=== PATIENT | female | born 1985 | race Caucasian/White ===

== ENCOUNTER 2016-09-26 03:56 | Outpatient (CLI) | payer MEDICAID ==
[~2016-09-26] VITALS: Ht 160 cm; Wt 86.0 kg
[~2016-09-26 03:56] MED LIST: PREN-39 PO
[2016-09-26] MEDS ORDERED: CITRACAL PO (04:12)
[2016-09-26 04:13] VITALS: BP 127/84; PULSE 69; RESP 18; Ht 160 cm; Wt 86.0 kg
--- NOTE | 2016-09-26 06:53 | PN ---
Date/Time of Note Date/Time of Note DATE: 09/26/16 TIME: 06:50 OB Subjective Subjective Subjective patient came w/ c/o ctx, r/o labor good FM, no VB, no LOF OB Objective Objective Objective 127/84, 69, 18, 98.5 Abdd- gravid, n/t SVE- 1-2/80/-3 FHT- 130; Cat I [place]- irreg ctx Abdomen: WNL Heart Rate: 130's Accelerations: Accelerations Present Decelerations: No Decelerations Varibility: Moderate Intensity: Mild OB Assessment/Plan Other Assessment: 31 yo P 1 @ 39 wks, 6 days, r/o labor - not in labor - reassuring status Other plan: d/c home w labor precautions f/u prn RHYS WESTON MD Sep 26, 2016 06:53
--- NOTE | 2016-09-26 07:18 | TRIAGE ---
OB Triage Datetime Report Generated by CPN: 09/26/2016 07:17 Datetime: 09/26/2016 06:53 Stage of : OB Triage Labor Evaluation Frequency: 2-7.5 Monitor Mode: External Duration (sec)2399: 60-120 Quality: Moderate Pattern: Normal: <= 5 Contractions in 10 Minutes Resting Tone [place]: Relaxed Heart Rate FHR Baseline Rate: 130 Monitor Mode: External US Variability: Moderate 6-25 bpm Accelerations: 15X15 Decelerations: None Category: Category I Datetime: 09/26/2016 05:45 Stage of : OB Triage Labor Evaluation Frequency: 3-6 Monitor Mode: External Duration (sec)2399: 60-120 Quality: Moderate Pattern: Normal: <= 5 Contractions in 10 Minutes Resting Tone [place]: Relaxed Heart Rate FHR Baseline Rate: 130 Monitor Mode: External US Variability: Moderate 6-25 bpm Accelerations: 15X15 Decelerations: None Category: Category I Datetime: 09/26/2016 04:45 Stage of : OB Triage Temperature Route: Oral Labor Evaluation Frequency: 3-6 Monitor Mode: External Duration (sec)2399: 60-120 Quality: Moderate Pattern: Normal: <= 5 Contractions in 10 Minutes Resting Tone [place]: Relaxed Heart Rate FHR Baseline Rate: 130 Monitor Mode: External US Variability: Moderate 6-25 bpm Accelerations: 15X15 Decelerations: None Category: Category I Pain Assessment Pain Scale: 7 Pain Presence: Intermittent Pain Type: Cramping Pain Location: Abdomen Pain Goal: 5 Pain Relief Measures: Comfort Measures Datetime: 09/26/2016 04:22 Vaginal Exam Dilatation (cms): 1.5 Effacement (%): 80 Station: -2 Exam By: MACKENZIE Vaginal Bleeding: None Cervix, Consistency: Moderate Cervix, Position: Posterior Datetime: 09/26/2016 04:10 Assessment Type: Triage Time of Arrival: 09/26/2016 03:53 EGA: 39.6 Arrived By: Wheelchair Arrived From: Home Chief Complaint: CONTRACTIONS SINCE 0100 Movement: Present Contractions: Irregular Time Contractions Began: 09/26/2016 01:00 Rupture of Membranes: Denies Vaginal Bleeding: None Vaginal Discharge: Denies Recent Sexual Intercouse: Denies Patient Complaints: Contractions Time Provider Notified: 09/26/2016 04:40 Provider Notified: WESTON Initial Plan: EFM, ASSESSMENT, CALL MD FOR ORDERS Maternal Assessment Level of Consciousness: Fully Conscious DTR's/Clonus: DTRs 2+; No Clonus Headache: Denies Blurred Vision: No Respiratory Effort: Unlabored; Regular Rhythm; Equal Expansion Breath Sounds, Left: Clear and Equal Breath Sounds, Right: Clear and Equal Nausea/Vomiting: Denies RUQ Epigastric Pain: Denies Lower Extremities Edema: Bilateral Lower Extremities Degree: None Degree: None Facial Edema: None Fall Risk Assessment History of Falling: (0) No Secondary Diagnosis: (0) No Ambulatory Aid: (0) Bedrest/Nurse Assist IV Therapy: (0) No Gait: (0) Normal/Bedrest/Immobile Mental Status: (0) Oriented to Own Ability Fall Score: 0 Fall Risk Score Definition: No Risk: No action required
== END 2016-09-26 07:03 | disposition home or self-care (01) ==
LOC: OBT 03:56 → L-D 03:58 → OBT 07:03
PROVIDERS: ATTEND Obstetrics & Gynecology
DX: O60.03 Preterm labor without delivery, third trimester (principal); Z3A.39 39 weeks gestation of pregnancy
CPT/HCPCS: G0463

== ENCOUNTER 2016-09-29 15:00 | Inpatient (IN) | payer MEDICAID ==
[~2016-09-29] VITALS: Ht 160 cm; Wt 84.5 kg
[~2016-09-29 15:00] MED LIST changes: +CITRACAL PO; +LACTATED RINGER'S 1,000 ML IV PRN
[2016-09-29 16:06] VITALS: Ht 160 cm; Wt 84.5 kg
[2016-09-29] MEDS: LACTATED RINGER'S 1,000 ML IV SCH ×2 (16:30→17:57)
[2016-09-29 16:52] LABS: ADD SCAN DIFF NO
[2016-09-29 16:53] LABS: BASOPHILS % 0.4 % (0.0-2.0); EOSINOPHILS % 0.4 % (0.0-7.0); HEMATOCRIT 33.6 % (37.0-47.0); LYMPHOCYTES # 1.4 10^3/ul (0.8-2.9); LYMPHOCYTES % 19.8 % (15.0-51.0); MEAN CORPUSCULAR HEMOGLOBIN 29.1 pg (29.0-33.0); MEAN CORPUSCULAR HGB CONC 32.7 g/dl (32.0-37.0); MEAN CORPUSCULAR VOLUME 88.9 fl (82.0-101.0); MEAN PLATELET VOLUME 9.7 fl (7.4-10.4); MONOCYTE # 0.4 10^3/ul (0.3-0.9); NEUTROPHIL # 5.2 10^3/ul (1.6-7.5); NEUTROPHILS % 72.3 % (39.0-77.0); PLATELET COUNT 201 10^3/UL (140-415); RED BLOOD COUNT 3.78 10^6/ul (4.20-5.40); WHITE BLOOD COUNT 7.2 10^3/ul (4.8-10.8)
[2016-09-29 16:57] LABS: INR 0.9; PARTIAL THROMBOPLASTIN TIME 25.6 Sec (25.0-35.0); PROTIME 12.1 Sec (12.2-14.2); PT RATIO 0.9
[2016-09-29] MEDS ORDERED: MISOPROSTOL 200 MCG TAB PR PRN (17:00)
[2016-09-29] MEDS ORDERED: CARBOPROST 250 MCG INJ IM PRN (17:00)
[2016-09-29] MEDS ORDERED: LIDOCAINE 1% (MPF) 30 ML INJ INJ PRN (17:00)
[2016-09-29] MEDS ORDERED: OXYTOCIN 30 UNITS/LR 500 ML IV SCH (17:00)
[2016-09-29] MEDS ORDERED: OXYTOCIN 30 UNITS/LR 500 ML IV PRN (17:00)
[2016-09-29] MEDS ORDERED: ACETAMINOPHEN/CODEINE #3 TAB PO PRN (17:00)
[2016-09-29] MEDS ORDERED: IBUPROFEN 600 MG TAB PO PRN (17:00)
[2016-09-29] MEDS ORDERED: METHYLERGONOVINE 0.2 MG INJ IM PRN (17:00)
[2016-09-29] MEDS ORDERED: BUTORPHANOL 2 MG INJ IV PRN ×2 (17:00)
--- NOTE | 2016-09-29 17:10 | HP ---
Date/Time of Note Date/Time of Note DATE: 09/29/16 TIME: 17:07 OB - History Hx of Present Free Text/Dictation admitted for induction at 40+ weeks Last Menstrual Period: Dec 31, 2015 Estimated Due Date: Sep 27, 2016 : 2 Para: 1 Care: Good Care Ultrasounds: Normal mid trimester US Obstetrical Complications: None Medical Complications: None Past Family/Social History * Past Medical, Surgical, Family and Obstetric Histories reviewed from chart. Blood Type: O+ Rubella: immune RPR/VDRL: Negative GBS Status: Negative HBsAG: Negative OB Admission Exam Physical Exam HEENT: WNL Heart: Rhythm Normal Lungs: Clear, Equal Abdomen: WNL Extremities: Normal Reflexes: Normal Cervical Dilatation: 3cm Effacement: 75% Station: -3 Membranes: Intact Heart Rate: 130's Accelerations: Accelerations Present Decelerations: No Decelerations Varibility: Marked Contractions on Admission: None Last 72 hours Lab Results CBC & BMP 09/29/16 15:30 OB Assessment/Plan Reason for admission: induction of labor Other Assessment: term gestation for induction of the labor Induction Method: per Pitocin Protocol DAVID GUERRA MD Sep 29, 2016 17:10
[2016-09-29] MEDS ORDERED: MINERAL OIL LIGHT 10 ML VIAL TOP ONE (18:00)
[2016-09-29 21:35] LABS: ADD SCAN DIFF NO
[2016-09-29 21:38] LABS: BASOPHILS % 0.4 % (0.0-2.0); EOSINOPHILS % 0.5 % (0.0-7.0); HEMATOCRIT 31.9 % (37.0-47.0); HEMOGLOBIN 10.3 g/dl (12.0-16.0); LYMPHOCYTES # 1.8 10^3/ul (0.8-2.9); LYMPHOCYTES % 24.4 % (15.0-51.0); MEAN CORPUSCULAR HEMOGLOBIN 28.5 pg (29.0-33.0); MEAN CORPUSCULAR HGB CONC 32.3 g/dl (32.0-37.0); MEAN CORPUSCULAR VOLUME 88.4 fl (82.0-101.0); MEAN PLATELET VOLUME 9.5 fl (7.4-10.4); MONOCYTE # 0.4 10^3/ul (0.3-0.9); MONOCYTES % 5.6 % (0.0-11.0); PLATELET COUNT 182 10^3/UL (140-415); RED BLOOD COUNT 3.61 10^6/ul (4.20-5.40); WHITE BLOOD COUNT 7.3 10^3/ul (4.8-10.8)
[2016-09-29 21:41] LABS: ADD UMIC NO; URINE BILIRUBIN (Dip) NEGATIVE (NEGATIVE); URINE BLOOD (Dip) NEGATIVE (NEGATIVE); URINE COLOR LT. YELLOW (YELLOW); URINE GLUCOSE (Dip) NEGATIVE (NEGATIVE); URINE KETONES (Dip) NEGATIVE (NEGATIVE); URINE LEUKOCYTE ESTERASE (Dip) NEGATIVE (NEGATIVE); URINE NITRITE (Dip) NEGATIVE (NEGATIVE); URINE TOTAL PROTEIN (Dip) NEGATIVE (NEGATIVE); URINE UROBILINOGEN (Dip) 0.2 E.U./dL (0.1-1.0)
[2016-09-29 21:48] LABS: ALBUMIN 2.8 g/dl (3.3-4.9); INR 0.91; PROTIME 12.3 Sec (12.2-14.2)
[2016-09-29 21:49] LABS: PARTIAL THROMBOPLASTIN TIME 25.4 Sec (25.0-35.0); POTASSIUM 3.6 mmol/L (3.5-5.1)
[2016-09-29 21:51] LABS: BILIRUBIN,INDIRECT 0.1 mg/dl (0-1.1); BILIRUBIN,TOTAL 0.1 mg/dl (0.2-1.3); CREATININE 0.52 mg/dl (0.44-1.00); TOTAL PROTEIN 5.6 g/dl (6.1-8.1)
[2016-09-29 21:52] LABS: CALCIUM 8.2 mg/dl (8.4-10.2); URIC ACID 4.8 mg/dl (3.1-7.9)
[2016-09-29] MEDS ORDERED: FENTAnyl 2MCG/ML-ROPIV 0.2% 100 ML ONE (22:34)
[2016-09-29 22:42] LABS: FIBRIN SPLIT PRODUCT <10 ug/ml (<10)
[2016-09-30] MEDS ORDERED: OXYTOCIN 30 UNITS/LR 500 ML IV SCH (04:30)
[2016-09-30] MEDS: IBUPROFEN 600 MG TAB PO SCH ×4 (05:54→23:49)
[2016-09-30] MEDS ORDERED: LANOLIN 7 GM TUBE TOP PRN (06:00)
[2016-09-30] MEDS ORDERED: ONDANSETRON 4 MG INJ IV PRN (06:00)
[2016-09-30] MEDS ORDERED: OXYTOCIN 30 UNITS/LR 500 ML IV PRN (06:00)
[2016-09-30] MEDS ORDERED: WITCH HAZEL/GLYCERIN PAD PR PRN (06:00)
[2016-09-30] MEDS ORDERED: MISOPROSTOL 200 MCG TAB PR PRN (06:00)
[2016-09-30] MEDS ORDERED: ZOLPIDEM 5 MG TAB PO PRN (06:00)
[2016-09-30] MEDS ORDERED: DIPHENHYDRAMINE 25 MG CAP PO PRN (06:00)
[2016-09-30] MEDS ORDERED: morphine 2 MG INJ IV PRN (06:00)
[2016-09-30] MEDS ORDERED: CARBOPROST 250 MCG INJ IM PRN (06:00)
--- NOTE | 2016-09-30 06:02 | LDN ---
Date/Time of Note Date/Time of Note DATE: 09/30/16 TIME: 06:00 Delivery Summary Placenta Delivered: Spontaneously Meconium: none Perineum intact?: Yes Anesthesia type: Epidural Estimated blood loss: 400 All needle counts correct: Yes Any foreign bodies felt in the: Yes Problems: Infant Delivery Information Sex Sex: female Apgars 1 Minute: 8 5 Minute: 9 Suctioning Nose & mouth suctioned at stefania: Yes Delee suction performed: Yes Umbilical Cord Umbilical cord with: 3 Vessels Cord presentations: nuchal cord Nuchal cord present X: 1 Cord Blood was obtained: Yes Mother & Baby Disposition Disposition Tight nuchal cord x 1 noted at delivery, released after delivery of head Placenta delivered complete ENRIQUE BARNETT MD Sep 30, 2016 05:54
[2016-09-30 06:30] VITALS: BP 135/88; PULSE 57; RESP 18
[2016-09-30 07:45] VITALS: BP 125/74; PULSE 62; RESP 16
[2016-09-30] MEDS: LACTATED RINGER'S 1,000 ML IV* SCH ×3 (07:58→21:25)
--- NOTE | 2016-09-30 08:20 | RADRPT ---
PROCEDURE: XR Chest PA and Lateral CLINICAL INDICATION: , positive PPD TECHNIQUE: PA and Lateral views of the chest were obtained. COMPARISON: None. FINDINGS: Cardiovascular: The cardiovascular silhouette appears unremarkable. Lung Yadav: The lung yadav appear clear with no nodule, alveolar infiltrate, or interstitial promi nence evident. Pleural Spaces: No pneumothorax is identified and no effusion is evident. Osseous Structures: The osseous structures appear intact. Soft Tissues: The soft tissues appear generous. IMPRESSION: Unremarkable chest without evidence of tuberculosis. Physician Deborah Date Time Electronically viewed and signed by Bossman Tinsley Physician on 09/30/2016 08:19 /
[2016-09-30] MEDS: SENNA/DOCUSATE NA (8.6MG/50MG) TAB PO SCH ×2 (09:21→21:24)
[2016-09-30 12:00] VITALS: BP 115/66; PULSE 56
[2016-09-30 15:40] VITALS: BP 127/83; PULSE 80; RESP 16
[2016-09-30 20:00] VITALS: BP 138/90; PULSE 71; RESP 18
[2016-09-30] MEDS: traMADol 50 MG TAB PO PRN (22:19)
[2016-09-30 23:30] VITALS: BP 128/81; PULSE 75; RESP 18
[2016-09-30] MEDS: CEPHALEXIN 500 MG CAP PO SCH (23:48)
[2016-10-01 04:00] VITALS: BP 111/74; PULSE 76; RESP 19
[2016-10-01] MEDS: IBUPROFEN 600 MG TAB PO SCH ×4 (05:34→23:42)
[2016-10-01] MEDS: traMADol 50 MG TAB PO PRN ×2 (05:35→11:39)
[2016-10-01] MEDS: CEPHALEXIN 500 MG CAP PO SCH ×4 (05:35→23:42)
[2016-10-01 08:08] VITALS: BP 112/69; PULSE 69; RESP 20
[2016-10-01 08:24] LABS: ADD SCAN DIFF NO
[2016-10-01 08:30] LABS: BASOPHILS % 0.4 % (0.0-2.0); EOSINOPHILS # 0.1 10^3/ul (0.0-0.5); EOSINOPHILS % 1.3 % (0.0-7.0); HEMATOCRIT 33.9 % (37.0-47.0); HEMOGLOBIN 11.1 g/dl (12.0-16.0); LYMPHOCYTES # 1.8 10^3/ul (0.8-2.9); LYMPHOCYTES % 22.6 % (15.0-51.0); MEAN CORPUSCULAR HEMOGLOBIN 29.1 pg (29.0-33.0); MEAN CORPUSCULAR HGB CONC 32.7 g/dl (32.0-37.0); MEAN CORPUSCULAR VOLUME 88.7 fl (82.0-101.0); MEAN PLATELET VOLUME 9.5 fl (7.4-10.4); MONOCYTE # 0.4 10^3/ul (0.3-0.9); MONOCYTES % 4.7 % (0.0-11.0); NEUTROPHIL # 5.6 10^3/ul (1.6-7.5); PLATELET COUNT 186 10^3/UL (140-415); RED BLOOD COUNT 3.82 10^6/ul (4.20-5.40); RED CELL DISTRIBUTION WIDTH 14.3 % (11.5-14.5); WHITE BLOOD COUNT 7.9 10^3/ul (4.8-10.8)
[2016-10-01] MEDS: SENNA/DOCUSATE NA (8.6MG/50MG) TAB PO SCH ×2 (09:43→21:17)
[2016-10-01 12:10] VITALS: BP 128/93; PULSE 80
[2016-10-01 17:22] VITALS: BP 138/98; PULSE 69; RESP 20
[2016-10-01 18:41] VITALS: BP 127/77; PULSE 80; RESP 19
[2016-10-01 19:25] VITALS: BP 128/73; PULSE 72; RESP 18
--- NOTE | 2016-10-01 22:32 | DS ---
Date/Time of Note Date/Time of Note home next day DATE: 10/01/16 TIME: 22:31 Obstetrical Discharge Record Final Diagnosis Final Diagnosis: Term delivered Other Final Diagnosis S/P vaginal delivery Vaginal Delivery Obstetrical Delivery: Spontaneous Complications Augmentation: Yes Condition on Discharge Physical Assessment Last Vitals: see nurses notes Voiding: Yes Bowel Movement: Yes Breast: Soft, non-tender, Filling Fundus: Firm Abdomen and Incision: soft BS + Episiotomy: NA Calf Tenderness: No Patient Condition: Good DAVID GUERRA MD Oct 01, 2016 22:32
[2016-10-01] MEDS ORDERED: IBUP-1542 PO (22:34)
--- NOTE | 2016-10-01 22:34 | PD.PPDC ---
CRYPTOLOGIC TECHNICIAN TECHNICAL Discharge Instruction Provider Information Physician Information 31 y/o female had vaginal delivery Diagnosis Final Diagnosis: S/P vaginal delivery Condition Patient Condition: Good Diet Diet: Resume Regular Diet Activity/Restrictions Activity: Normal Activity May Shower Restrictions: Nothing in the Vagina Return to Work or School: November 17, 2016 Follow-up Follow-up with Physician: 4, Week/Weeks (inclinic) Return to clinic for OB Instructions: Breast Tenderness Depression DAVID GUERRA MD Oct 01, 2016 22:33
[2016-10-01] MEDS ORDERED: TRAM50TA2 PO (22:37)
[2016-10-02 03:15] VITALS: BP 126/76; PULSE 75; RESP 20
[2016-10-02] MEDS: traMADol 50 MG TAB PO PRN (03:42)
[2016-10-02] MEDS: CEPHALEXIN 500 MG CAP PO SCH ×2 (05:44→11:34)
[2016-10-02] MEDS: IBUPROFEN 600 MG TAB PO SCH ×2 (05:45→11:34)
[2016-10-02 08:00] VITALS: BP 125/78; PULSE 82; RESP 18
[2016-10-02] MEDS ORDERED: MEASLES,MUMPS,RUBELLA VACCINE INJ SC* ONE (09:00)
[2016-10-02] MEDS ORDERED: VARICELLA VACCINE LIVE/PF 1,350 UNIT/0.5 ML ML SC* ONE (09:00)
[2016-10-02] MEDS ORDERED: DIPHTH/TET/ACEL PERTUSS (ADULT) 0.5 ML VIAL IM* ONE (09:00)
[2016-10-02] MEDS: SENNA/DOCUSATE NA (8.6MG/50MG) TAB PO SCH (09:07)
== END 2016-10-02 16:32 | disposition home or self-care (01) | DRG 775 ==
LOC: L-D 15:07 → PP1 09-30 06:25
PROVIDERS: ADMIT Obstetrics & Gynecology; ATTEND Obstetrics & Gynecology
PROC: 10E0XZZ Delivery of Products of Conception, External Approach (ICD-10-PCS; principal; 2016-09-30)
DX: O69.81X0 Labor and delivery complicated by cord around neck, without compression, not applicable or unspecified (principal); E66.01 Morbid (severe) obesity due to excess calories; O48.0 Post-term pregnancy; Z3A.40 40 weeks gestation of pregnancy; O99.214 Obesity complicating childbirth; Z68.33 Body mass index [BMI] 33.0-33.9, adult; Z37.0 Single live birth
CPT/HCPCS: 71020; 80053; 81003; 84560; 85025; 85362; 85384; 85610; 85730; 86592; 86900; 86901; 87340; 90715; 90716; A4310; J2590; J3010; J7120

== ENCOUNTER 2017-03-27 10:09 | Observation (INO) | payer MEDICAID ==
[~2017-03-27] VITALS: Wt 77.5 kg
[2017-03-27] VITALS (10 sets, daily range): BP systolic 85–127; BP diastolic 50–75; PULSE 62–90; RESP 13–22; TEMP 98.1
[~2017-03-27 10:09] MED LIST changes: +CEFAZOLIN 1 GM INJ ONE; +IBUP-1542 PO; -LACTATED RINGER'S 1,000 ML IV PRN; +SEVOFLURANE 15 MIN ONE; +TRAM50TA2 PO
[2017-03-27 11:48] LABS: BASOPHILS % 0.6 % (0.0-2.0); EOSINOPHILS # 0.1 10^3/ul (0.0-0.5); EOSINOPHILS % 1.7 % (0.0-7.0); LYMPHOCYTES # 1.7 10^3/ul (0.8-2.9); LYMPHOCYTES % 31.8 % (15.0-51.0); MEAN CORPUSCULAR HEMOGLOBIN 30.8 pg (29.0-33.0); MEAN CORPUSCULAR HGB CONC 33.3 g/dl (32.0-37.0); MEAN CORPUSCULAR VOLUME 92.3 fl (82.0-101.0); MEAN PLATELET VOLUME 8.5 fl (7.4-10.4); MONOCYTE # 0.3 10^3/ul (0.3-0.9); MONOCYTES % 6.1 % (0.0-11.0); NEUTROPHIL # 3.2 10^3/ul (1.6-7.5); NEUTROPHILS % 59.4 % (39.0-77.0); PLATELET COUNT 203 10^3/UL (140-415); RED CELL DISTRIBUTION WIDTH 12.7 % (11.5-14.5); WHITE BLOOD COUNT 5.4 10^3/ul (4.8-10.8)
--- NOTE | 2017-03-27 11:48 | RADRPT ---
PROCEDURE: OBSTETRICAL ULTRASOUND WITH ENDOVAGINAL IMAGES CLINICAL INDICATION: Vaginal Bleed () TECHNIQUE: Multiple sonographic images of the pelvis were obtained utilizing a transabdominal and endovaginal technique. The images were reviewed on a PACS workstation. COMPARISON: None. FINDINGS: The uterus measures 6.3 x 4.0 x 4.2 cm. There is thickening of the endometrium to 10 mm without evidence of an intrauterine . The right ovary measures 3.5 x 2.2 x 2.4 cm. There is normal vascular flow in the right ovary. The left ovary is not visualized although there is a 6.6 x 4.9 cm mixed cystic and solid lesion in t he left adnexa which is nonspecific. Low level internal echoes are identified within the cystic comp onents and vascular flow is identified in the solid components. There is mild pelvic free fluid. IMPRESSION: Thickening of the endometrium to 10 mm without evidence of an intrauterine . There is also a 6.6 cm mixed cystic and solid lesion with vascular flow in the left adnexa which is nonspecific, b ut may be an ectopic in the appropriate clinical setting. Short-term follow-up ultrasound and serial Beta HCG measurements are recommended. These findings were discussed with Gilbert Anaya (N) over the phone on 03/27/2017 at 11:47 AM . RPTAT: EE Physician Patti Date Time Electronically viewed and signed by Physician Patti on 03/27/2017 11:48 /
[2017-03-27 11:50] LABS: ADD UMIC YES; UR ASCORBIC ACID NEGATIVE (NEGATIVE); UR BACTERIA FEW /HPF (NONE SEEN); UR BILIRUBIN (Dip) NEGATIVE (NEGATIVE); UR BLOOD (Dip) NEGATIVE (NEGATIVE); UR CLARITY SLIGHTLY CLOUDY (CLEAR); UR COLOR YELLOW (YELLOW); UR GLUCOSE (Dip) NEGATIVE (NEGATIVE); UR KETONES (Dip) NEGATIVE (NEGATIVE); UR LEUKOCYTE ESTERASE (Dip) 2+ Leu/ul (NEGATIVE); UR MUCUS MODERATE /HPF (NONE SEEN); UR NITRITE (Dip) NEGATIVE (NEGATIVE); UR RBC 2 /HPF (0-5); UR SQUAMOUS EPITHELIAL CELL FEW /HPF (FEW); UR TOTAL PROTEIN (Dip) NEGATIVE (NEGATIVE); UR UROBILINOGEN (Dip) NEGATIVE (NEGATIVE)
[2017-03-27 12:25] LABS: INR 0.91; PROTIME 12.3 Sec (12.2-14.2)
[2017-03-27 12:26] LABS: PARTIAL THROMBOPLASTIN TIME 30.9 Sec (25.0-35.0)
--- NOTE | 2017-03-27 13:28 | ERA ---
ER Documentation Chief Complaint Date/Time DATE: 03/27/17 TIME: 13:02 Chief Complaint SENT BY CLINIC FOR OB WORKUP HPI This is a 31-year-old female who had a baby in September 2016 followed by IUD placement. The patient went to her placement director yesterday because she was having some vaginal bleeding it was discovered that she was . Ultrasound demonstrates a right adnexal mass 6 cm represents an ectopic . The patient is having some off and on right adnexal cramping but there is no pain currently. She has no back pain no syncope no fever. Her doctor is Dr. Ornelas ROS All systems reviewed and are negative except as per history of present illness. Medications Home Meds Active Scripts Tramadol HCl (Tramadol HCl) 50 Mg Tablet, 50 MG PO Q6H Y for PAIN, #30 TAB 0 Refills Prov:DAVID GUERRA MD 10/01/16 Ibuprofen* (Ibuprofen*) 600 Mg Tablet, 600 MG PO Q6, #30 TAB 0 Refills Prov:DAVID GUERRA MD 10/01/16 Reported Medications Calcium Citrate* (Citracal*) 950 Mg Tab, 950 MG PO DAILY, TAB 09/26/16 Vits W-Ca,Fe,Fa(<1MG) ( Vitamins) 1 Tab Tablet, 1 TAB PO DAILY for 7 Days 11/26/14 Allergies Allergies: Coded Allergies: acetaminophen (Verified Allergy, Intermediate, 03/27/17) PMhx/Soc Medical and Surgical Hx: pt denies Medical Hx, pt denies Surgical Hx Hx Alcohol Use: No Hx Substance Use: No Hx Tobacco Use: No Smoking Status: Never smoker FmHx Family History: No coronary disease Physical Exam Vitals Vital Signs Date Time Temp Pulse Resp B/P Pulse Ox O2 Delivery O2 Flow Rate FiO2 03/27/17 10:11 98.0 71 18 124/71 99 Physical Exam C Const: Well-developed, well-nourished Head: Atraumatic, normocephalic Eyes: Normal Conjunctiva, PERRLA, EOMI, normal sclera, no nystagmus ENT: Normal External Ears, Nose and Mouth, moist mucus membranes. Neck: Full range of motion. No meningismus, no lymphadenopathy. Resp: Clear to auscultation bilaterally, no wheezing, rhonchi, rales Cardio: Regular rate and rhythm, no murmurs, S1 S2 present Abd: Soft, non tender x 4, non distended. Normal bowel sounds, no guarding or rebound, no pulsitile abdominal masses or bruits Skin: No petechiae or rashes, no ecchymosis , no maculopapular rash Back: No midline or flank tenderness Ext: No cyanosis, or edema, FROM x 4, normal inspection, neurovascularly intact x 4 Neur: Awake and alert, STR 5/5 x 4, sensation intact x 4, no focal findings, cerebellum intact Psych: Normal Mood and Affect Result Diagram: 03/27/17 1116 Results 24 hrs Laboratory Tests Test 03/27/17 11:16 White Blood Count 5.410^3/ul Red Blood Count 3.9010^6/ul Hemoglobin 12.0g/dl Hematocrit 36.0% Mean Corpuscular Volume 92.3fl Mean Corpuscular Hemoglobin 30.8pg Mean Corpuscular Hemoglobin Concent 33.3g/dl Red Cell Distribution Width 12.7% Platelet Count 52551^3/UL Mean Platelet Volume 8.5fl Neutrophils % 59.4% Lymphocytes % 31.8% Monocytes % 6.1% Eosinophils % 1.7% Basophils % 0.6% Nucleated Red Blood Cells % 0.0/100WBC Neutrophils # 3.210^3/ul Lymphocytes # 1.710^3/ul Monocytes # 0.310^3/ul Eosinophils # 0.110^3/ul Basophils # 0.010^3/ul Nucleated Red Blood Cells # 0.010^3/ul Prothrombin Time 12.3Sec Prothrombin Time Ratio 1.0 INR International Normalized Ratio 0.91 Activated Partial Thromboplast Time 30.9Sec Urine Color YELLOW Urine Clarity SLIGHTLY CLOUDY Urine pH 5.0 Urine Specific [place] 1.030 Urine Ketones NEGATIVEmg/dL Urine Nitrite NEGATIVEmg/dL Urine Bilirubin NEGATIVEmg/dL Urine Urobilinogen NEGATIVEmg/dL Urine Leukocyte Esterase 2+Yesenia/ul Urine Microscopic RBC 2/HPF Urine Microscopic WBC 10/HPF Urine Squamous Epithelial Cells FEW/HPF Urine Bacteria FEW/HPF Urine Mucus MODERATE/HPF Urine Hemoglobin NEGATIVEmg/dL Urine Glucose NEGATIVEmg/dL Urine Total Protein NEGATIVEmg/dl Beta HCG, Quantitative 1898.8mIU/ml Current Medications Medications (Trade) Dose Ordered Sig/Monica Route PRN Reason Start Time Stop Time Status Last Admin Dose Admin Sodium Chloride (NS) 1,000 ml @ 80 mls/hr [id number] IV 03/27/17 16:33 03/28/17 05:02 Ondansetron HCl (Zofran Inj) 4 mg BRIDGE ORDER PRN IV NAUSEA AND/OR VOMITING 03/27/17 17:00 03/28/17 16:59 Acetaminophen (Tylenol Tab) 650 mg ER BRIDGE PRN PO MILD PAIN/FEVER 03/27/17 17:00 03/28/17 16:59 Procedures/MDM PROCEDURE: OBSTETRICAL ULTRASOUND WITH ENDOVAGINAL IMAGES CLINICAL INDICATION: Vaginal Bleed () TECHNIQUE: Multiple sonographic images of the pelvis were obtained utilizing a transabdominal and endovaginal technique. The images were reviewed on a PACS workstation. COMPARISON: None. FINDINGS: The uterus measures 6.3 x 4.0 x 4.2 cm. There is thickening of the endometrium to 10 mm without evidence of an intrauterine . The right ovary measures 3.5 x 2.2 x 2.4 cm. There is normal vascular flow in the right ovary. The left ovary is not visualized although there is a 6.6 x 4.9 cm mixed cystic and solid lesion in the left adnexa which is nonspecific. Low level internal echoes are identified within the cystic components and vascular flow is identified in the solid components. There is mild pelvic free fluid. IMPRESSION: Thickening of the endometrium to 10 mm without evidence of an intrauterine . There is also a 6.6 cm mixed cystic and solid lesion with vascular flow in the left adnexa which is nonspecific, but may be an ectopic in the appropriate clinical setting. Short-term follow-up ultrasound and serial Beta HCG measurements are recommended. These findings were discussed with Jackie Anaya (N) over the phone on at 11:47 AM . RPTAT: EE Physician Patti Date Time Electronically viewed and signed by Physician Patti on 03/27/2017 11:48 RA/ CC: JACKIE BARNARD MD HCG is nearly 2000. Page patient's placement director now for follow-up Dr Newby has seen pt in ED 1615 Departure Diagnosis: Primary Impression: Ectopic Qualified Code: O00.10 - Tubal without intrauterine Condition: Stable ELAINE WHITNEY DO Mar 27, 2017 13:28
--- NOTE | 2017-03-27 16:28 | HP ---
Date/Time of Note Date/Time of Note DATE: 03/27/17 TIME: 16:19 Assessment/Plan VTE Prophylaxis VTE Prophylaxis Intervention: ambulation Assessment/Plan Assessment/Plan Thickening of the endometrium to 10 mm without evidence of an intrauterine . There is also a 6.6 cm mixed cystic and solid lesion with vascular flow in the left adnexa which is nonspecific, but may be an ectopic in the appropriate clinical setting. Short-term follow-up ultrasound and serial Beta HCG measurements are recommended. B HCG around 1800 A; possible ectopic : does not qualify for methotrexate because of size will schedule for D and C and laparoscopic and or mini lap removal of the L adnexal mass HPI/ROS Admit Date/Time Admit Date/Time 03/27/2017 Hx of Present Illness 31 y/o female G # P2 sent in from clinic for + test and IUD test was removed yesterday was found to have 6cm adnexal mass and B HCG of 2000 and empty uterusHAd irregular vaginal bleeding X 6 months sice had IUD placed denies pelvic pain and other complications ROS Constitutional: improved, no complaints Eyes: no complaints ENT: no complaints Respiratory: no complaints Cardiovascular: no complaints Gastrointestinal: no complaints Genitourinary: bleeding, no complaints Musculoskeletal: no complaints Skin: no complaints Neurologic: no complaints Endocrine: no complaints Lymphatic: no complaints Psychological: nl mood/affect, no complaints Immunologic: no complaints PMH/Family/Social Past Medical History Medical History: no pertinent history Past Surgical History Past Surgical Hx: no surgical history Family History Significant Family History: no pertinent family hx Social History Alcohol Use: none Smoking Status: Never smoker Drug Use: none Exam/Review of Systems Vital Signs Vitals Vital Signs Date Time Temp Pulse Resp B/P Pulse Ox O2 Delivery O2 Flow Rate FiO2 03/27/17 10:11 98.0 71 18 124/71 99 Exam Exam Patient does not seem to be in acute distress Constitutional: alert, oriented, well developed Psych: nl mood/affect, no complaints Head: atraumatic, normocephalic Eyes: EOMI, PERRL, nl conjunctiva, nl lids, nl sclera ENMT: nl external ears & nose, nl lips & teeth, nl nasal mucosa & septum Neck: non-tender, supple Respiratory: clear to auscultation, normal air movement Cardiovascular: nl pulses, regular rate and rhythm Gastrointestinal: nl liver, spleen, non-tender, soft Musculoskeletal: nl extremities to inspection Extremities: normal pulses Neurological: HELPDESK MANAGER II-XII intact, nl mental status, nl speech, nl strength Skin: nl turgor, No rash or lesions Lymph: nl lymph nodes Labs Result Diagram: 03/27/17 1116 DAVID GUERRA MD Mar 27, 2017 16:27
[2017-03-27] MEDS ORDERED: SOD CHLORIDE 0.9% 1,000 ML IV SCH (16:33)
[2017-03-27] MEDS ORDERED: ACETAMINOPHEN 325 MG TAB PO PRN (17:00)
[2017-03-27] MEDS ORDERED: ONDANSETRON 4 MG INJ IV PRN ×2 (17:00→18:00)
[2017-03-27] MEDS ORDERED: LIDOCAINE 1% (MPF) 30 ML INJ ONE (17:38)
[2017-03-27] MEDS ORDERED: LIDOCAINE 2% (SDV) 5 ML INJ ONE (17:48)
[2017-03-27] MEDS ORDERED: SUCCINYLCHOLINE CHLORIDE 100 MG/5 ML SYG IV ONE (17:48)
[2017-03-27] MEDS ORDERED: GLYCOPYRROLATE 0.4 MG INJ ONE ×2 (17:48→19:15)
[2017-03-27] MEDS ORDERED: ROCURONIUM 50 MG INJ ONE (17:49)
[2017-03-27] MEDS ORDERED: NEOSTIGMINE 3 MG/3 ML SYRINGE ONE ×2 (17:49→19:15)
[2017-03-27] MEDS ORDERED: PROPOFOL 20 ML ONE (17:49)
[2017-03-27] MEDS ORDERED: MEPERIDINE 100 MG INJ ONE (17:53)
[2017-03-27] MEDS ORDERED: LABETALOL HCL 20MG INJ IV PRN (18:00)
[2017-03-27] MEDS ORDERED: EPHEDrine SULFATE 50 MG/5 ML SYG IV PRN (18:00)
[2017-03-27] MEDS ORDERED: HYDROmorphONE (0.2 MG/ML) 10ML SYG IV PRN ×2 (18:00)
[2017-03-27] MEDS ORDERED: FENTAnyl 50 MCG/ML VIAL IV PRN ×3 (18:00)
[2017-03-27] MEDS ORDERED: METOCLOPRAMIDE 10 MG INJ IV PRN (18:00)
[2017-03-27] MEDS ORDERED: MEPERIDINE 25 MG INJ IV PRN (18:00)
[2017-03-27] MEDS ORDERED: MIDAZOLAM 1 MG/ML 2 ML INJ IV PRN (18:00)
[2017-03-27] MEDS ORDERED: hydrALAzine 20 MG INJ IV PRN (18:00)
[2017-03-27] MEDS ORDERED: DIPHENHYDRAMINE 50 MG INJ IV PRN (18:00)
[2017-03-27] MEDS ORDERED: ONDANSETRON 4 MG INJ ONE (19:13)
[2017-03-27] MEDS ORDERED: METOCLOPRAMIDE 10 MG INJ ONE (19:14)
--- NOTE | 2017-03-27 19:42 | OPPN ---
Date/Time of Note Date/Time of Note DATE: 03/27/17 TIME: 19:39 Operative Report Free Text/Dictation Left ruptured Ectopic Preoperative Diagnosis Left ruptured Ectopic Postoperative Diagnosis Large Left Adnexal mass,Ovaian ectopic vs Hemorragic cyst Operation/Procedure Performed D&C&Suction and Operative laparoscopic removal of left adnexal mass,Ovarian cyst Provider: ROMARIO MARQUEZ M.D. Anesthesia Type: general Estimated blood loss: 10 - 50 ml's Transfusion Required: no Specimens EMT and Left adnexal mass Grafts/Implants: none Complications: no ROMARIO MARQUEZ M.D. Mar 27, 2017 19:42
[2017-03-27] MEDS: HYDROmorphONE (0.2 MG/ML) 10ML SYG IV PRN ×2 (20:08→20:12)
[2017-03-27 20:46] LABS: BASOPHILS % 0.1 % (0.0-2.0); EOSINOPHILS # 0.1 10^3/ul (0.0-0.5); EOSINOPHILS % 0.8 % (0.0-7.0); HEMOGLOBIN 9.4 g/dl (12.0-16.0); LYMPHOCYTES # 1.1 10^3/ul (0.8-2.9); LYMPHOCYTES % 14.3 % (15.0-51.0); MEAN CORPUSCULAR HEMOGLOBIN 30.2 pg (29.0-33.0); MEAN CORPUSCULAR HGB CONC 32.4 g/dl (32.0-37.0); MEAN CORPUSCULAR VOLUME 93.2 fl (82.0-101.0); MEAN PLATELET VOLUME 8.5 fl (7.4-10.4); MONOCYTE # 0.3 10^3/ul (0.3-0.9); MONOCYTES % 3.7 % (0.0-11.0); NEUTROPHIL # 6.4 10^3/ul (1.6-7.5); NEUTROPHILS % 80.7 % (39.0-77.0); PLATELET COUNT 160 10^3/UL (140-415); RED BLOOD COUNT 3.11 10^6/ul (4.20-5.40); RED CELL DISTRIBUTION WIDTH 12.6 % (11.5-14.5); WHITE BLOOD COUNT 7.9 10^3/ul (4.8-10.8)
[2017-03-27] MEDS: LACTATED RINGER'S 1,000 ML IV* SCH (20:48)
[2017-03-27 20:59] LABS: INR 1.05; PROTIME 13.7 Sec (12.2-14.2); PT RATIO 1.1
[2017-03-27 21:00] LABS: PARTIAL THROMBOPLASTIN TIME 25.9 Sec (25.0-35.0)
[2017-03-27] MEDS ORDERED: SENNA/DOCUSATE NA (8.6MG/50MG) TAB PO PRN (21:00)
[2017-03-27] MEDS ORDERED: ZOLPIDEM 5 MG TAB PO PRN (21:00)
[2017-03-27] MEDS: SENNA/DOCUSATE NA (8.6MG/50MG) TAB PO SCH (21:00)
[2017-03-27 21:01] LABS: CALCIUM 7.9 mg/dl (8.4-10.2); CREATININE 0.57 mg/dl (0.44-1.00); POTASSIUM 3.6 mmol/L (3.5-5.1)
[2017-03-27] MEDS ORDERED: IBUPROFEN 600 MG TAB ONE (21:04)
[2017-03-27 21:07] LABS: HOLD TRANSMISSIONS 1
[2017-03-27] MEDS: OXYCODONE/ASPIRIN (4.88/325) TAB PO PRN (21:25)
[2017-03-28] MEDS: OXYCODONE/ASPIRIN (4.88/325) TAB PO PRN ×4 (01:41→20:50)
[2017-03-28 03:00] VITALS: BP 94/56; PULSE 64; RESP 16
[2017-03-28] MEDS: LACTATED RINGER'S 1,000 ML IV* SCH ×3 (04:56→20:48)
[2017-03-28] MEDS: IBUPROFEN 600 MG TAB PO SCH ×4 (05:43→18:24)
[2017-03-28 07:23] LABS: BASOPHILS % 0.2 % (0.0-2.0); EOSINOPHILS # 0.1 10^3/ul (0.0-0.5); EOSINOPHILS % 0.9 % (0.0-7.0); HEMATOCRIT 25.7 % (37.0-47.0); HEMOGLOBIN 8.5 g/dl (12.0-16.0); LYMPHOCYTES # 1.4 10^3/ul (0.8-2.9); LYMPHOCYTES % 27.2 % (15.0-51.0); MEAN CORPUSCULAR HEMOGLOBIN 30.5 pg (29.0-33.0); MEAN CORPUSCULAR HGB CONC 33.1 g/dl (32.0-37.0); MEAN CORPUSCULAR VOLUME 92.1 fl (82.0-101.0); MEAN PLATELET VOLUME 8.8 fl (7.4-10.4); MONOCYTE # 0.4 10^3/ul (0.3-0.9); MONOCYTES % 6.6 % (0.0-11.0); NEUTROPHIL # 3.4 10^3/ul (1.6-7.5); NEUTROPHILS % 64.7 % (39.0-77.0); PLATELET COUNT 150 10^3/UL (140-415); RED BLOOD COUNT 2.79 10^6/ul (4.20-5.40); RED CELL DISTRIBUTION WIDTH 12.5 % (11.5-14.5); WHITE BLOOD COUNT 5.3 10^3/ul (4.8-10.8)
[2017-03-28 07:53] VITALS: BP 96/53; RESP 14
--- NOTE | 2017-03-28 08:23 | QN ---
Documentation Comment POD #1 S/P D&C and Laparoscopic left ovarian cystectomy for a suspected ectopic patient is stable and afebrile positive flatus VSS Abd soft NT/ND Ext NT BHCG 1898 to 631.9 Hb/Hct 8.5/25.7 A/P Discharge patient home F/U with TRANSPORT TANK TECHNICIAN in one week MULUGETA BEE MD Mar 28, 2017 08:23
[2017-03-28] MEDS: SENNA/DOCUSATE NA (8.6MG/50MG) TAB PO SCH ×2 (09:01→20:51)
[2017-03-28 14:00] VITALS: BP 94/60; RESP 15
--- NOTE | 2017-03-28 14:40 | DS ---
Date/Time of Note Date/Time of Note DATE: 03/28/17 TIME: 14:37 Discharge Summary Admission/Discharge Info Admit Date/Time Mar 27, 2017 at 17:26 Discharge Date/Time 03/28/2017 Discharge Diagnosis SAB vs possible (ectopic ) Patient Condition: Good Hx of Present Illness 31 y/o female G # P2 sent in from clinic for + test and IUD test was removed yesterday was found to have 6cm adnexal mass and B HCG of 2000 and empty uterusHAd irregular vaginal bleeding X 6 months sice had IUD placed denies pelvic pain and other complications Hospital Course uncomplicated patient stable and afebrile Home Meds Active Scripts Tramadol HCl (Tramadol HCl) 50 Mg Tablet, 50 MG PO Q6H Y for PAIN, #30 TAB 0 Refills Prov:DAVID GUERRA MD 10/01/16 Ibuprofen* (Ibuprofen*) 600 Mg Tablet, 600 MG PO Q6, #30 TAB 0 Refills Prov:DAVID GUERRA MD 10/01/16 Reported Medications Calcium Citrate* (Citracal*) 950 Mg Tab, 950 MG PO DAILY, TAB 09/26/16 Vits W-Ca,Fe,Fa(<1MG) ( Vitamins) 1 Tab Tablet, 1 TAB PO DAILY for 7 Days 11/26/14 Follow-up Plan f/u in one week with PERFORATOR Primary Care Provider Care Physician No Primary Pending Labs Laboratory Tests Test 03/27/17 20:32 03/28/17 07:04 03/28/17 07:07 White Blood Count 7.910^3/ul (4.8-10.8) 5.310^3/ul (4.8-10.8) Red Blood Count 3.1110^6/ul (4.20-5.40) 2.7910^6/ul (4.20-5.40) Hemoglobin 9.4g/dl (12.0-16.0) 8.5g/dl (12.0-16.0) Hematocrit 29.0% (37.0-47.0) 25.7% (37.0-47.0) Mean Corpuscular Volume 93.2fl (82.0-101.0) 92.1fl (82.0-101.0) Mean Corpuscular Hemoglobin 30.2pg (29.0-33.0) 30.5pg (29.0-33.0) Mean Corpuscular Hemoglobin Concent 32.4g/dl (32.0-37.0) 33.1g/dl (32.0-37.0) Red Cell Distribution Width 12.6% (11.5-14.5) 12.5% (11.5-14.5) Platelet Count 19445^3/UL (140-415) 63446^3/UL (140-415) Mean Platelet Volume 8.5fl (7.4-10.4) 8.8fl (7.4-10.4) Neutrophils % 80.7% (39.0-77.0) 64.7% (39.0-77.0) Lymphocytes % 14.3% (15.0-51.0) 27.2% (15.0-51.0) Monocytes % 3.7% (0.0-11.0) 6.6% (0.0-11.0) Eosinophils % 0.8% (0.0-7.0) 0.9% (0.0-7.0) Basophils % 0.1% (0.0-2.0) 0.2% (0.0-2.0) Nucleated Red Blood Cells % 0.0/100WBC (0.0-0.0) 0.0/100WBC (0.0-0.0) Neutrophils # 6.410^3/ul (1.6-7.5) 3.410^3/ul (1.6-7.5) Lymphocytes # 1.110^3/ul (0.8-2.9) 1.410^3/ul (0.8-2.9) Monocytes # 0.310^3/ul (0.3-0.9) 0.410^3/ul (0.3-0.9) Eosinophils # 0.110^3/ul (0.0-0.5) 0.110^3/ul (0.0-0.5) Basophils # 0.010^3/ul (0.0-0.1) 0.010^3/ul (0.0-0.1) Nucleated Red Blood Cells # 0.010^3/ul (0.0-0.0) 0.010^3/ul (0.0-0.0) CBC Results Faxed/Phoned 1 Prothrombin Time 13.7Sec (12.2-14.2) Prothrombin Time Ratio 1.1 INR International Normalized Ratio 1.05 Activated Partial Thromboplast Time 25.9Sec (25.0-35.0) Sodium Level 137mmol/L (135-144) Potassium Level 3.6mmol/L (3.5-5.1) Chloride Level 109mmol/L (97-110) Carbon Dioxide Level 24mmol/L (21-31) Anion Gap 8 (8-16) Blood Urea Nitrogen 9mg/dl (7-20) Creatinine 0.57mg/dl (0.44-1.00) Glucose Level 109mg/dl (70-220) Calcium Level 7.9mg/dl (8.4-10.2) Beta HCG, Quantitative 631.9mIU/ml Copies To: CC: ROMARIO MARQUEZ M.D., BAHAREH MD Mar 28, 2017 14:40
--- NOTE | 2017-03-28 17:11 | OPR ---
DATE OF OPERATION: 03/27/2017 PREOPERATIVE DIAGNOSIS: Left adnexal mass, possible ruptured ectopic . POSTOPERATIVE DIAGNOSIS: Left adnexal mass and hemoperitoneum. OPERATION PERFORMED: Laparoscopy, left adnexal mass removal, ovarian cystectomy, removal of ectopic possible ectopic , D and C and suction. ATTENDING SURGEON: Sunny iMller MD ANESTHESIOLOGIST: Dr. Renteria. ANESTHESIA: General. COMPLICATIONS: None. ESTIMATED BLOOD LOSS: Less than 50 cc. There was around 150 cc blood in the intra-abdominal cavity. OPERATIVE PROCEDURE: The patient was taken to the operating room where general anesthesia was found to be adequate. Patient was placed in the dorsal lithotomy position. After prep and drape, the weighted speculum was placed inside the vaginal vault. Anterior lip of the cervix was grasped by single tooth tenaculum. Cervix was dilated by Hung dilator. Using suction size 7, intrauterine cavity was suctioned. of endometrial cavity was done. HUMI was inserted in place, instruments removed, and then attention was turned to the abdominal field. A 1 cm incision was made below the umbilicus. First trocar was inserted and intra-abdominal cavity was assessed. Second trocar was placed on both sides of the patient 10 cm from the 1st trocar under direct visualization of the camera. There was 150 cc of free fluid and blood in the abdominal cavity that was suctioned, pictures taken. A left adnexal mass was noticed. Using a Gyrus and Surendra Harmonic, it was and removed from the ovary and ovarian cystectomy was done. Hemostasis achieved, then intra- abdominal cavity was completely assessed, both tubes and ovaries were normal, pictures taken. The gas was removed, instruments were removed. The skin on the left side was used closed using 2- 0 Vicryl, then 2-0 Monocryl, and the other incision was closed using 2-0 Monocryl sutures. Dermabond was placed on top of the incision. Instruments removed, HUMI was removed. Patient tolerated the procedure well and was transferred to recovery in stable condition. There were no complications regarding this surgery. Dictated By: Sunny Miller MD /pranav/ashok /Document#: [id number]
--- NOTE | 2017-03-28 18:02 | PD.PPDC ---
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 Provider Information Physician Information 31-year-old female admitted for possible ectopic had laparoscopic removal of a mass pathologic results of which still is pending Diagnosis Final Diagnosis: Status post laparoscopic removal of a left adnexal mass Condition Patient Condition: Good Diet Diet: Resume Regular Diet Activity/Restrictions Activity: Normal Activity May Shower Restrictions: Nothing in the Vagina Follow-up Follow-up with Physician: 2, Week/Weeks (In clinic) Return to clinic for PRIMARY CARE COORDINATOR Instructions: Fever greater than 101 Chills Worsening abdominal pain Comment: Pelvic rest 4 weeks Surgical Instructions: Incisional Drainage Incisional Redness DAVID GUERRA MD Mar 28, 2017 18:02
[2017-03-28] MEDS ORDERED: ONDANSETRON 4 MG INJ IV PRN (19:30)
[2017-03-28 20:59] VITALS: BP 100/60; PULSE 68; RESP 18
== END 2017-03-28 21:32 | disposition home or self-care (01) ==
LOC: FTE 10:09 → REC 17:26 → MS1 17:26
PROVIDERS: ADMIT Obstetrics & Gynecology; ATTEND Obstetrics & Gynecology
DX: O00.90 Unspecified ectopic pregnancy without intrauterine pregnancy (principal); E66.9 Obesity, unspecified; Z88.6 Allergy status to analgesic agent
CPT/HCPCS: 36415; 58662; 76801; 76817; 80048; 81001; 84702; 85025; 85610; 85730; 86850; 86900; 86901; 86920; 88305; 96360; 96361; J0690; J1170; J2175; J2405; J2710; J2765; J7030; J7120; Z7500; Z7502; Z7512; Z7610; 99217; G0378; J7999